=== PATIENT | female | born 1990 | race Caucasian/White ===

== ENCOUNTER → 2016-10-23 | Outpatient (CLI) | payer OTHER | LOC: LAB 09:49 | DX: N91.2 Amenorrhea, unspecified (principal) | CPT/HCPCS: 36415; 84702 ==

== ENCOUNTER → 2016-10-25 | Outpatient (CLI) | payer OTHER | LOC: LAB 07:41 | DX: N91.2 Amenorrhea, unspecified (principal) | CPT/HCPCS: 36415; 84702 ==

== ENCOUNTER 2021-11-08 13:53 | Emergency (ER) | payer OTHER ==
[~2021-11-08 13:53] MED LIST: AUGMENTIN 875-1 EACH PO; CIPRO500 MG PO; COLACE 100MG C100 MG PO; DOCUSATE SODIU100 MG PO; FEOSOL325 MG PO; FERROUS SULFAT325 M2 PO; FLAGYL500 MG PO; HYDROCODON-ACE1 EAC4 PO; IBUPROFEN600 MG PO; LORTAB 5-325 M1 EACH PO; NORCO 5-325 TA1 EACH PO; NORCO 7.5-3251 EACH PO; ONDANSETRON ODT4 MG PO; PERCOCET 5/325 T1 EA PO; PHENERGAN 25 MG25 M1 PO; PRENATAL TABLE1 EAC1 PO; PRENATAL VITAM1 EAC3 PO; PRENATAL VITAM1 EAC6 PO; ZITHROMAX250 MG PO
[2021-11-08] MEDS ORDERED: ENDOCET 5-3251 EACH PO (16:26)
== END 2021-11-08 16:40 | disposition home or self-care (01) ==
LOC: ER1 13:53
DX: S92.511A Displaced fracture of proximal phalanx of right lesser toe(s), initial encounter for closed fracture (principal); F17.210 Nicotine dependence, cigarettes, uncomplicated; W22.8XXA Striking against or struck by other objects, initial encounter; Y92.009 Unspecified place in unspecified non-institutional (private) residence as the place of occurrence of the external cause
CPT/HCPCS: 73630; 99283